=== PATIENT | female | born 1975 | race Caucasian/White ===

== ENCOUNTER 2020-07-19 00:08 | Emergency (ER) | payer OTHER ==
[2020-07-19] MEDS ORDERED: Sodium Chloride 0.9% 1000 ML 1,000 ML IV SCH (01:00)
[2020-07-19] MEDS ORDERED: Inapsine 5 MG/2 ML IV ONE (01:00)
[2020-07-19 01:15] LABS: Appearance CLEAR (CLEAR); Bilirubin NEGATIVE (NEGATIVE); Blood NEGATIVE Ery/ul (0-5); Glucose NEGATIVE (NEGATIVE); Hyaline Casts 0-2 /LPF (0-2); Ketones NEGATIVE (NEGATIVE); Leukocyte Esterase NEGATIVE (NEGATIVE); Mucus SLIGHT /HPF (NEGATIVE); Nitrite NEGATIVE (NEGATIVE); Protein,Urine Dip NEGATIVE (Negative); Urobilinogen NEGATIVE mg/dL (0-1)
[2020-07-19] MEDS ORDERED: Inapsine 5 MG/2 ML ONE (01:19)
[2020-07-19] MEDS ORDERED: Sodium Chloride 0.9% 1000 ML 1,000 ML ONE (01:19)
--- NOTE | 2020-07-19 01:43 | ERPHSYRPT ---
- History of Present Illness Time Seen by Provider: 07/19/20 00:30 Source: patient Exam Limitations: no limitations Patient Subjective Stated Complaint: pt c/o nausea and vomiting, joint pain Triage Nursing Assessment: pt ambulated to ER room 6, gave urine sample. Pt c/o nausea, vomiting and joint pain x2 days, but it has progressively gotten worse. Pt c/o abd pain, states, "I have an autoimmune disorder but does not know which one, is to see Dr. Franklin in [place] on 08/17/20". Pt has family Dr. James Corcoran in [place], [place]. Physician History: Patient is a 45-year-old female presents to our emergency department complaining of nausea vomiting and joint pain. Symptoms started approximately 2 days ago. Patient states she has an autoimmune disorder but does not know which autoimmune disorder she has. Patient states that she had a disease control inspector that worked her up for her autoimmune condition but does not know/or does not recall the disease control inspector name. Patient states she is currently scheduled to see Dr. Franklin in [place] when on 17 August. Patient adds that she also has abdominal pain. Patient reports a hysterectomy 3 weeks ago. Patient's abdominal pain is primarily in the right upper quadrant. However patient has had a cholecystectomy in the past. Patient states that when her autoimmune disorder pain occurs she goes to emergency department for treatment with Dilaudid and Zofran. However patient states that she does not receive steroids for her autoimmune flareup. An inspect report was reviewed. Patient has very extensive narcotic and sedative prescriptions from various providers. Patient's Narc scores are narcotic 380 sedative 591. Patient states she has chronic pain. Patient states she does not have a pain specialist to regulate controlled substance prescriptions. I advised patient that we will not be treating her pain with Dilaudid unless a significant pathology is observed on her work-up. Patient stated that if she does not receive Dilaudid then Nubain, another opiate, would be the next helpful medication. Patient symptoms are moderate in intensity. No specific worsening or improving factors. Timing/Duration: today Severity: moderate Modifying Factors: Improves With: ibuprofen (Patient stated she took Tylenol for her pain but it did not help. Patient states that in spite of filling her Percocet prescription she dumped her pills in the toilet because she does not like Percocets.) Associated Symptoms: nausea, vomiting, abdominal pain, No shortness of breath, No heartburn, No diaphoresis, No cough, No chills, No chest pain, No fever, No headaches, No loss of appetite, No syncope, No seizure, No weakness Allergies/Adverse Reactions: ketamine Adverse Reaction (Intermediate, Verified 07/19/20 00:42) morphine Adverse Reaction (Intermediate, Verified 07/19/20 00:41) Rash prochlorperazine [From Compazine] Adverse Reaction (Intermediate, Verified 07/19/20 00:41) Muscle Aches ketorolac [From Toradol] Adverse Reaction (Mild, Verified 07/19/20 00:41) Nausea metoclopramide [From Reglan] Adverse Reaction (Mild, Verified 07/19/20 00:41) Nausea Home Medications: Aripiprazole [Abilify] 5 mg PO DAILY 07/19/20 [History] Ferrous Sulfate [Iron] 325 mg PO DAILY 07/19/20 [History] Metoprolol Succinate [Toprol Xl] 25 mg PO DAILY 07/19/20 [History] Ondansetron HCl [Zofran] 4 mg PO Q6HPRN PRN 07/19/20 [History] Promethazine HCl 25 mg [Phenergan 25 mg] 25 mg PO Q8HPRN PRN 07/19/20 [H istory] Sertraline HCl [Zoloft] 150 mg PO DAILY 07/19/20 [History] Trazodone HCl 50 mg PO DAILY PRN PRN 07/19/20 [History] Hx Tetanus, Diphtheria Vaccination/Date Given: Yes Hx Influenza Vaccination/Date Given: Yes Hx Pneumococcal Vaccination/Date Given: No Immunizations Up to Date: Yes Travel Risk - International Travel Have you traveled outside of the country in past 3 weeks: No - Coronavirus Screening Are you exhibiting any of the following symptoms?: Yes Symptoms: Vomiting/Diarrhea, Headaches/Body Aches/Fatigue Close contact with a COVID-19 positive Pt in past 14-21 Days: No - Review of Systems Constitutional: No Symptoms, No Fever, No Chills Eyes: No Symptoms Ears, Nose, & Throat: No Symptoms Respiratory: No Symptoms, No Cough, No Dyspnea Cardiac: No Symptoms, No Chest Pain, No Edema, No Syncope Abdominal/Gastrointestinal: No Symptoms, No Abdominal Pain, No Nausea, No Vomiting, No Diarrhea Genitourinary Symptoms: No Symptoms, No Dysuria Musculoskeletal: No Symptoms, No Back Pain, No Neck Pain Skin: No Symptoms, No Rash Neurological: No Symptoms, No Dizziness, No Focal Weakness, No Sensory Changes Psychological: No Symptoms Endocrine: No Symptoms Hematologic/Lymphatic: No Symptoms Immunological/Allergic: No Symptoms All Other Systems: Reviewed and Negative - Past Medical History Pertinent Past Medical History: Yes Neurological History: Migraines ENT History: No Pertinent History Cardiac History: No Pertinent History Respiratory History: No Pertinent History Endocrine Medical History: No Pertinent History Musculoskeletal History: No Pertinent History GI Medical History: Diverticulitis, Gallbladder Disease History: Other Psycho-Social History: Anxiety, Depression Female Reproductive Disorders: Other Other Medical History: STEFFANIE, lumpectomy to lt breast - Past Surgical History Past Surgical History: Yes Neuro Surgical History: No Pertinent History Cardiac: No Pertinent History Respiratory: No Pertinent History Gastrointestinal: Appendectomy, Cholecystectomy Genitourinary: No Pertinent History Musculoskeletal: No Pertinent History Female Surgical History: Hysterectomy Other Surgical History: ladds band - Social History Smoking Status: Current every day smoker How long have you smoked: 30 yrs Exposure to second hand smoke: Yes Drug Use: none Patient Lives Alone: No - Female History Hx Now: No - Nursing Vital Signs Nursing Vital Signs: Initial Vital Signs Temperature 98.1 F 07/19/20 00:26 Pulse Rate 130 H 07/19/20 00:26 Respiratory Rate 20 07/19/20 00:26 Blood Pressure 122/89 07/19/20 00:26 O2 Sat by Pulse Oximetry 97 07/19/20 00:26 Pain Scale Pain Intensity 0 - Physical Exam General Appearance: no apparent distress, alert Eye Exam: PERRL/EOMI, eyes nml inspection Ears, Nose, Throat Exam: normal ENT inspection, TMs normal, pharynx normal, m oist mucous membranes Neck Exam: normal inspection, non-tender, supple, full range of motion Respiratory Exam: normal breath sounds, lungs clear, No respiratory distress Cardiovascular Exam: regular rate/rhythm, normal heart sounds, normal peripheral pulses Gastrointestinal/Abdomen Exam: soft, normal bowel sounds, other (Tenderness to palpation right upper quadrant.), No tenderness, No mass Back Exam: normal inspection, normal range of motion, No CVA tenderness, No vertebral tenderness Extremity Exam: normal inspection, normal range of motion, pelvis stable Neurologic Exam: alert, oriented x 3, cooperative, normal mood/affect, nml cerebellar function, nml station & gait, sensation nml, No motor deficits Skin Exam: normal color, warm, dry, No rash Lymphatic Exam: No adenopathy SpO2 Interpretation: normal SpO2: 97 O2 Delivery: Room Air - Course Nursing assessment & vital signs reviewed: Yes - CT Exams Abdomen/Pelvis CT Interpretation: Tele-radiologist Report (No acute findings observed on CAT scan abdomen pelvis.) Ordered Tests: Active Orders 24 hr Category Date Time Status IV Insertion STAT Care 07/19/20 00:53 Active ABDOMEN AND PELVIS W CONTRAST [CT] Stat Exams 07/19/20 00:56 Taken CBC W DIFF Stat Lab 07/19/20 01:30 Completed CK (IN-HOUSE) [CK-Creatinine Phosphokinase] Stat Lab 07/19/20 01:30 Completed CMP Stat Lab 07/19/20 01:30 Completed HCG,QUALITATIVE URINE Stat Lab 07/19/20 00:26 Completed TROPONIN Q3H Lab 07/19/20 01:30 Completed TROPONIN Q3H Lab 07/19/20 04:00 Ordered TROPONIN Q3H Lab 07/19/20 07:00 Ordered TROPONIN Q3H Lab 07/19/20 10:00 Ordered TROPONIN Q3H Lab 07/19/20 13:00 Ordered UA W/RFX UR CULTURE Stat Lab 07/19/20 00:26 Completed Medication Summary Generic Name Dose Route Start Last Admin Trade Name Freq PRN Reason Stop Dose Admin Sodium Chloride 1,000 mls @ 100 mls/hr 07/19/20 01:00 07/19/20 01:21 Sodium Chloride 0.9% 1000 Ml IV 08/18/20 00:59 100 mls/hr .Q10H LIVIA Administration Discontinued Medications Generic Name Dose Route Start Last Admin Trade Name Freq PRN Reason Stop Dose Admin Droperidol 5 mg 07/19/20 01:00 07/19/20 01:21 Inapsine 5 Mg/2 Ml IV 07/19/20 01:01 5 mg STAT ONE Administration Droperidol Confirm 07/19/20 01:19 Inapsine 5 Mg/2 Ml Administered 07/19/20 01:20 Dose 5 mg .ROUTE .STOptimizely-[id number] ONE Lab/Rad Data: Laboratory Result Diagrams 07/19/20 01:30 07/19/20 01:30 Laboratory Results 07/19/20 07/19/20 07/19/20 Range/Units 01:30 01:30 01:30 WBC (4.0-10.5) K/mm3 RBC (4.1-5.4) M/mm3 Hgb (12.0-16.0) gm/dl Hct (35-47) % MCV (78-100) fl MCH (26-32) pg MCHC (32-36) g/dl RDW (11.5-14.0) % Plt Count (150-450) K/mm3 MPV (7.5-11.0) fl Gran % (36.0-66.0) % Eos # (Auto) (0-0.5) Absolute Lymphs (auto) (1.0-4.6) Absolute Monos (auto) (0.0-1.3) Lymphocytes % (24.0-44.0) % Monocytes % (0.0-12.0) % Eosinophils % (0.00-5.0) % Basophils % (0.0-0.4) % Absolute Granulocytes (1.4-6.9) Basophils # (0-0.4) Sodium 136 L (137-145) mmol/L Potassium 3.3 L (3.5-5.1) mmol/L Chloride 101 (98-107) mmol/L Carbon Dioxide 25 (22-30) mmol/L Anion Gap 13.3 (5-15) MEQ/L BUN 5 L (7-17) mg/dL Creatinine 0.81 (0.52-1.04) mg/dL Estimated GFR > 60.0 ML/MIN Glucose 106 (74-106) mg/dL Calcium 9.6 (8.4-10.2) mg/dL Total Bilirubin 0.20 (0.2-1.3) mg/dL AST 24 (14-36) U/L ALT 23 (0-35) U/L Alkaline Phosphatase 125 (38-126) U/L Creatine Kinase 62 (30-135) U/L Troponin I < 0.012 (0.000-0.034) ng/mL Serum Total Protein 7.9 (6.3-8.2) g/dL Albumin 4.5 (3.5-5.0) g/dL Urine Color (YELLOW) Urine Appearance (CLEAR) Urine pH (5-6) Ur Specific [place] (1.005-1.025) Urine Protein (Negative) Urine Ketones (NEGATIVE) Urine Blood (0-5) [place]/ul Urine Nitrite (NEGATIVE) Urine Bilirubin (NEGATIVE) Urine Urobilinogen (0-1) mg/dL Ur Leukocyte Esterase (NEGATIVE) Urine WBC (Auto) (0-5) /HPF Urine RBC (Auto) (0-2) /HPF U Hyaline Cast (Auto) (0-2) /LPF U Epithel Cells (Auto) (FEW) /HPF Urine Bacteria (Auto) (NEGATIVE) /HPF Urine Mucus (Auto) (NEGATIVE) /HPF Urine Culture Reflexed (NO) Urine Glucose (NEGATIVE) mg/dL Urine HCG, Qual (Negative) 07/19/20 07/19/20 07/19/20 Range/Units 01:30 00:26 00:26 WBC 9.5 (4.0-10.5) K/mm3 RBC 4.20 (4.1-5.4) M/mm3 Hgb 13.4 (12.0-16.0) gm/dl Hct 40.2 (35-47) % MCV 95.7 (78-100) fl MCH 31.9 (26-32) pg MCHC 33.3 (32-36) g/dl RDW 13.2 (11.5-14.0) % Plt Count 414 (150-450) K/mm3 MPV 9.7 (7.5-11.0) fl Gran % 61.3 (36.0-66.0) % Eos # (Auto) 0.10 (0-0.5) Absolute Lymphs (auto) 2.77 (1.0-4.6) Absolute Monos (auto) 0.77 (0.0-1.3) Lymphocytes % 29.2 (24.0-44.0) % Monocytes % 8.1 (0.0-12.0) % Eosinophils % 1.1 (0.00-5.0) % Basophils % 0.3 (0.0-0.4) % Absolute Granulocytes 5.83 (1.4-6.9) Basophils # 0.03 (0-0.4) Sodium (137-145) mmol/L Potassium (3.5-5.1) mmol/L Chloride (98-107) mmol/L Carbon Dioxide (22-30) mmol/L Anion Gap (5-15) MEQ/L BUN (7-17) mg/dL Creatinine (0.52-1.04) mg/dL Estimated GFR ML/MIN Glucose (74-106) mg/dL Calcium (8.4-10.2) mg/dL Total Bilirubin (0.2-1.3) mg/dL AST (14-36) U/L ALT (0-35) U/L Alkaline Phosphatase (38-126) U/L Creatine Kinase (30-135) U/L Troponin I (0.000-0.034) ng/mL Serum Total Protein (6.3-8.2) g/dL Albumin (3.5-5.0) g/dL Urine Color YELLOW (YELLOW) Urine Appearance CLEAR (CLEAR) Urine pH 6.0 (5-6) Ur Specific [place] 1.010 (1.005-1.025) Urine Protein NEGATIVE (Negative) Urine Ketones NEGATIVE (NEGATIVE) Urine Blood NEGATIVE (0-5) [place]/ul Urine Nitrite NEGATIVE (NEGATIVE) Urine Bilirubin NEGATIVE (NEGATIVE) Urine Urobilinogen NEGATIVE (0-1) mg/dL Ur Leukocyte Esterase NEGATIVE (NEGATIVE) Urine WBC (Auto) NONE (0-5) /HPF Urine RBC (Auto) NONE (0-2) /HPF U Hyaline Cast (Auto) 0-2 (0-2) /LPF U Epithel Cells (Auto) NONE (FEW) /HPF Urine Bacteria (Auto) NONE (NEGATIVE) /HPF Urine Mucus (Auto) SLIGHT (NEGATIVE) /HPF Urine Culture Reflexed NO (NO) Urine Glucose NEGATIVE (NEGATIVE) mg/dL Urine HCG, Qual NEGATIVE (Negative) - Progress Progress: improved Progress Note: Patient is a 45-year-old female presents to our emergency department with complaints of joint pain, myalgias, abdominal pain. Patient has an extensive inspect report. Additionally patient states that she experiences frequent autoimmune flareups and visits various emergency departments for Dilaudid. Patient requested Dilaudid during this emergency visit. Patient was advised that Dilaudid would be considered if significant pathology was observed. Patient then stated that Nubain would be in order if Dilaudid not administered. Patient's laboratory and imaging studies are essentially nonremarkable. Patient received droperidol which is an antiemetic and pain medication. This resolved patient's pain. Patient slept in the room comfortably. Vitals stable. Patient states she is ready for discharge. Will discharge at this time. Patient advised to follow-up with her primary care doctor within 48 hours for reevaluation. Patient voices no other complaints or concerns at this time. 07/19/20 03:32 Counseled pt/family regarding: lab results, diagnosis, need for follow-up, rad results - Departure Departure Disposition: Home Clinical Impression: Chronic pain Condition: Stable Critical Care Time: No Referrals: DOCTOR,NO FAMILY [Primary Care Provider] - MARIVEL BANG DO [ACTIVE STAFF] - Additional Instructions: Discharge/Care Plan LUIS PUENTES was seen on 07/19/20 in the Emergency Room. The patient was counseled regarding Diagnosis,Lab results, Imaging studies, need for follow up and when to return to the Emergency Room. Prescriptions given: Discharge Note I have spoken with the patient and/or caregivers. I have explained the patient's condition, diagnosis and treatment plan based on the information available to me at this time. I have answered the patient's and/or caregiver's questions and addressed any concerns. The patient and/or caregivers have as good understanding of the patient's diagnosis, condition and treatment plan as can be expected at this point. The vital signs have been stable. The patient's condition is stable and appropriate for discharge from the emergency department. The patient will pursue further outpatient evaluation with the primary care physician or other designated or consulting physician as outlined in the discharge instructions. The patient and/or caregivers are agreeable to this plan of care and follow-up instructions have been explained in detail. The patient and/or caregivers have received these instruction. The patient/and or caregivers are aware that any significant change in condition or worsening of symptoms should prompt an immediate return to this or the closest emergency department or call 911.
[2020-07-19 01:57] LABS: Absolute Neutrophil Ct (ANC) 5.83 (1.4-6.9); BASOPHIL % 0.3 % (0.0-0.4); Basophil (Absolute #) 0.03 (0-0.4); Eosinophil % 1.1 % (0.00-5.0); Hematocrit 40.2 % (35-47); Hemoglobin 13.4 gm/dl (12.0-16.0); Lymphocyte (Absolute #) 2.77 (1.0-4.6); Lymphocytes % 29.2 % (24.0-44.0); Mean Cell Volume 95.7 fl (78-100); Mean Corpuscular Hemoglobin 31.9 pg (26-32); Mean Corpuscular Hgb Concent. 33.3 g/dl (32-36); Mean Platelet Volume 9.7 fl (7.5-11.0); Monocyte (Absolute #) 0.77 (0.0-1.3); Monocytes % 8.1 % (0.0-12.0); Neutrophil % 61.3 % (36.0-66.0); Platelet Count 414 K/mm3 (150-450); Red Cell Distribution Width 13.2 % (11.5-14.0); White Blood Count 9.5 K/mm3 (4.0-10.5)
[2020-07-19 02:13] LABS: ALBUMIN 4.5 g/dL (3.5-5.0); ALKALINE PHOSPHATASE 125 U/L (38-126); ANION GAP 13.3 MEQ/L (5-15); BLOOD UREA NITROGEN 5 mg/dL (7-17); CHLORIDE 101 mmol/L (98-107); Calcium 9.6 mg/dL (8.4-10.2); Carbon Dioxide 25 mmol/L (22-30); Creatinine 1 0.81 mg/dL (0.52-1.04); EST GLOMERULAR FILTRATION RATE > 60.0 ML/MIN; Glucose 106 mg/dL (74-106); Potassium 3.3 mmol/L (3.5-5.1); SGOT/AST 24 U/L (14-36); SGPT/ALT 23 U/L (0-35); SODIUM 136 mmol/L (137-145); Total Protein 7.9 g/dL (6.3-8.2)
[2020-07-19 03:35] VITALS: BP 104/58; PULSE 83
[2020-07-19 03:36] VITALS: O2SAT 97
--- NOTE | 2020-07-19 08:58 | XRAY ---
Indication: Abdomen pain, nausea, vomiting, and diarrhea. Multiple contiguous axial images obtained through the abdomen and pelvis using 80 cc Isovue 370 contrast. Comparison: None Lung bases demonstrates moderate bilateral dependent atelectasis. No infiltrate or effusion. Heart is not enlarged. Noncontrasted stomach and bowel loops appear nonobstructed. Appendectomy, cholecystectomy, and reported. Incidental bilateral tubal ligation clips. No free fluid/air. Remaining liver, pancreas, spleen, adrenal glands, kidneys, ureters, bladder, and aorta appear normal in CT appearance and attenuation. No pathologic retroperitoneal lymphadenopathy. Osseous structures intact with mild L4-S1 degenerative vacuum disc phenomena. No ventral or inguinal hernias. Impression: 1. Bibasilar dependent atelectasis and lower lumbar degenerative disc disease. 2. Remaining CT abdomen/pelvis with contrast exam is negative. Comment: Preliminary interpretation was made by [facility]. No critical discrepancy.
== END 2020-07-19 03:39 | disposition home or self-care (01) ==
LOC: ED 00:08
DX: R11.2 Nausea with vomiting, unspecified (principal); M25.50 Pain in unspecified joint; G89.29 Other chronic pain; R10.11 Right upper quadrant pain; Z79.899 Other long term (current) drug therapy; F17.210 Nicotine dependence, cigarettes, uncomplicated
CPT/HCPCS: 36000; 36415; 74177; 80053; 81001; 82550; 84484; 84703; 85025; 96360; 96361; 96374; 99284